=== PATIENT | female | born 1965 | race Caucasian/White ===

== ENCOUNTER → 2016-11-02 | Outpatient (CLI) | payer OTHER ==
--- NOTE | 2016-11-03 05:14 | REP ---
Clinical: Periumbilical/ventral pain. Technique: Real time meeks scale ultrasound examination using linear high frequency transducer. Findings: Directed ultrasound examination of the periumbilical region at the site of maximal tenderness during normal respiration and Valsalva demonstrates normal subcutaneous tissues and no evidence for hernia. Impression: Normal examination. No obvious hernia. Signed by Qasim Rai MD 11/03/2016 05:06 A
== END ==
LOC: M RAD 14:24
PROVIDERS: ATTEND Family Medicine
DX: K43.9 Ventral hernia without obstruction or gangrene (principal)

== ENCOUNTER → 2016-11-08 | Outpatient (REF) | payer OTHER ==
[2016-11-08 20:46] LABS: MEAN CORPUSCULAR HGB CONC 35.1 g/dl (32.0-36.5); MEAN CORPUSCULAR VOLUME 88.3 fl (80.0-96.0); PLATELET COUNT, AUTOMATED 267 k/mm3 (150-450); RED CELL DISTRIBUTION WIDTH 12.3 % (11.5-14.5); WHITE BLOOD COUNT 9.1 K/mm3 (4.0-10.0)
[2016-11-08 21:04] LABS: ALBUMIN 4.1 GM/DL (3.2-5.2); ALBUMIN/GLOBULIN RATIO 1.17 (1.00-1.93); ALKALINE PHOSPHATASE 76 U/L (45-117); ALT/SGPT 38 U/L (12-78); AMYLASE 56 U/L (25-115); ANION GAP 7 MEQ/L (8-16); AST/SGOT 25 U/L (15-37); BILIRUBIN,TOTAL 0.3 MG/DL (0.2-1.0); BLOOD UREA NITROGEN 16 MG/DL (7-18); CALCIUM LEVEL 9.8 MG/DL (8.5-10.1); CARBON DIOXIDE LEVEL 30 MEQ/L (21-32); CHLORIDE LEVEL 102 MEQ/L (98-107); CREATININE FOR GFR 0.89 MG/DL (0.55-1.02); GLOMERULAR FILTRATION RATE > 60.0 (>51); GLUCOSE, FASTING 89 MG/DL (70-105); POTASSIUM SERUM 4.8 MEQ/L (3.5-5.1); SODIUM LEVEL 139 MEQ/L (136-145); TOTAL PROTEIN 7.6 GM/DL (6.4-8.2)
[2016-11-08 21:10] LABS: BASOPHILS 2 % (0-4); EOSINOPHILS 5 % (0-5)
== END ==
LOC: M SFHCLERA 16:10
PROVIDERS: ATTEND Family Medicine
DX: R10.11 Right upper quadrant pain (principal)

== ENCOUNTER → 2016-11-09 | Outpatient (REF) | payer OTHER | LOC: M SFHCLERA 17:52 | PROVIDERS: ATTEND Family Medicine | DX: R10.11 Right upper quadrant pain (principal) ==

== ENCOUNTER → 2016-11-10 | Outpatient (CLI) | payer OTHER ==
--- NOTE | 2016-11-10 08:12 | REP ---
Clinical: Right upper quadrant abdominal pain. Technique: Cotter scale ultrasound using curved array transducer. Findings: The liver and pancreas are normal in contour, size, and echogenicity without focal hepatic or pancreatic lesions identified. The gallbladder is normal without gallstones, wall thickening or pericholecystic fluid. No biliary ductal dilatation is appreciated, and the common bile duct measures 4.0 mm diameter. The right kidney is normal in reniform shape without hydronephrosis and measures 10.3 x 6.1 x 4.1 cm. No ascites. Visualized portions of the abdominal aorta normal. Impression: Normal right upper quadrant and gallbladder abdominal ultrasound. Signed by Qasim Rai MD 11/10/2016 08:02 A
== END ==
LOC: M RAD 06:42
PROVIDERS: ATTEND Family Medicine
DX: R10.9 Unspecified abdominal pain (principal)

== ENCOUNTER → 2017-01-09 | Outpatient (REF) | payer OTHER | LOC: M SFHCLERA 08:32 | PROVIDERS: ATTEND Family Medicine | DX: Z13.1 Encounter for screening for diabetes mellitus (principal); R10.11 Right upper quadrant pain; Z13.220 Encounter for screening for lipoid disorders ==

== ENCOUNTER → 2017-01-10 | Outpatient (REF) | payer OTHER | LOC: M SFHCLERA 10:14 | PROVIDERS: ATTEND Family Medicine | DX: R10.11 Right upper quadrant pain (principal); Z13.1 Encounter for screening for diabetes mellitus; Z13.220 Encounter for screening for lipoid disorders ==

== ENCOUNTER → 2017-01-10 | Outpatient (REF) | payer OTHER | LOC: M LAB REF 13:09 | PROVIDERS: ATTEND Specialist | DX: Z12.4 Encounter for screening for malignant neoplasm of cervix (principal) ==

== ENCOUNTER → 2017-02-13 | Outpatient (REF) | payer OTHER ==
[~2017-02-13] MED LIST: CLAR5TAB7 PO; CRAN125T PO; ONETAB35 PO; PROAAER10 INH
== END ==
LOC: M LAB REF 17:15
PROVIDERS: ATTEND Specialist
DX: R87.612 Low grade squamous intraepithelial lesion on cytologic smear of cervix (LGSIL) (principal)

== ENCOUNTER 2017-03-06 11:09 | Outpatient (CLI) | payer OTHER ==
[~2017-03-06] VITALS: Ht 167.6 cm; Wt 64.0 kg
[~2017-03-06 11:09] MED LIST changes: +LIDOCAINE 2% INJ 100 MG/5 ML SDV (FOR ANES.) As Ordered ONE; +NS 1,000 ML IV ONE; +PROPOFOL 200 MG/20 ML VIAL As Ordered ONE
[2017-03-06] MEDS ORDERED: PROPOFOL 200 MG/20 ML VIAL As Ordered ONE (13:23)
--- NOTE | 2017-03-06 13:32 | ROOR ---
Patient Name: Zabrina Castellanos Procedure Date: 03/06/2017 1:11 PM Date of : 1965 Age: 52 Room: [facility] Gender: Female Note Status: Finalized Procedure: Colonoscopy Indications: Screening for colorectal malignant neoplasm Providers: Asif ROSE MD Referring MD: Tania ESCOBAR MD Requesting Provider: Medicines: Monitored Anesthesia Care Complications: No immediate complications. Procedure: Pre-Anesthesia Assessment: - The heart rate, respiratory rate, oxygen saturations, blood pressure, adequacy of pulmonary ventilation, and response to care were monitored throughout the procedure. The Colonoscope was introduced through the anus and advanced to the cecum, identified by appendiceal orifice and ileocecal valve. The colonoscopy was performed without difficulty. The patient tolerated the procedure well. The quality of the bowel preparation was good. Findings: The perianal and digital rectal examinations were normal. Internal hemorrhoids were found during retroflexion. The hemorrhoids were Grade II (internal hemorrhoids that prolapse but reduce spontaneously). A 4 mm polyp was found in the splenic flexure. The polyp was sessile. The polyp was removed with a cold snare. Resection and retrieval were complete. The exam was otherwise without abnormality on direct and retroflexion views. Impression: - Single moderate prolapsing Internal hemorrhoid. - One 4 mm polyp at the splenic flexure, removed with a cold snare. Resected and retrieved. - The colon examination was otherwise normal on direct and retroflexion views. Recommendation: - Telephone endoscopist for pathology results in 2 weeks. - If the pathology report reveals adenomatous tissue, then repeat the colonoscopy for surveillance in 5 years. - - If internal hemorrhoid is symptomatic (rectal bleeding, etc), consideration may be given to surgical repair. (The hemorrhoid is too large to ligate/band with my instruments today. I did not attempt repair today). Asif Rsoe MD Asif ROSE MD 03/06/2017 1:32:19 PM This report has been signed electronically. Number of Addenda: 0 Note Initiated On: 03/06/2017 1:11 PM Estimated Blood Loss: Estimated blood loss: none.
[2017-03-06 13:45] VITALS: BP 123/78
== END 2017-03-06 14:18 | disposition home or self-care (01) ==
LOC: M OPP 11:09
PROVIDERS: ATTEND Internal Medicine Gastroenterology
DX: Z12.11 Encounter for screening for malignant neoplasm of colon (principal); D12.3 Benign neoplasm of transverse colon; K64.1 Second degree hemorrhoids; J45.909 Unspecified asthma, uncomplicated; R06.2 Wheezing; Z91.010 Allergy to peanuts; Z88.3 Allergy status to other anti-infective agents; Z79.899 Other long term (current) drug therapy; Z80.3 Family history of malignant neoplasm of breast; Z80.42 Family history of malignant neoplasm of prostate; Z80.41 Family history of malignant neoplasm of ovary

== ENCOUNTER → 2017-06-18 | Outpatient (CLI) | payer OTHER ==
[~2017-06-18] MED LIST changes: -LIDOCAINE 2% INJ 100 MG/5 ML SDV (FOR ANES.) As Ordered ONE; -NS 1,000 ML IV ONE; -PROPOFOL 200 MG/20 ML VIAL As Ordered ONE
[2017-06-18 19:41] LABS: THYROID PEROXIDASE ANTIBODY < 28.0 U/ML (<60.0)
[2017-06-18 19:45] LABS: ALBUMIN 4.5 GM/DL (3.2-5.2); ALBUMIN/GLOBULIN RATIO 1.32 (1.00-1.93); ALKALINE PHOSPHATASE 67 U/L (45-117); ALT/SGPT 37 U/L (12-78); ANION GAP 8 MEQ/L (8-16); AST/SGOT 23 U/L (7-37); BILIRUBIN,TOTAL 0.3 MG/DL (0.2-1.0); BLOOD UREA NITROGEN 10 MG/DL (7-18); CALCIUM LEVEL 9.2 MG/DL (8.5-10.1); CARBON DIOXIDE LEVEL 28 MEQ/L (21-32); CHLORIDE LEVEL 104 MEQ/L (98-107); COMPLEMENT C3 109 MG/DL (90-180); CREATININE FOR GFR 0.81 MG/DL (0.55-1.02); GLOMERULAR FILTRATION RATE > 60.0 (>51); GLUCOSE, FASTING 92 MG/DL (70-105); POTASSIUM SERUM 4.3 MEQ/L (3.5-5.1); SODIUM LEVEL 140 MEQ/L (136-145); THYROXINE (T4) 11.8 UG/DL (4.5-12.0); TOTAL PROTEIN 7.9 GM/DL (6.4-8.2)
[2017-06-18 20:05] LABS: MEAN CORPUSCULAR HEMOGLOBIN 28.6 pg (27.0-33.0); MEAN CORPUSCULAR HGB CONC 32.6 g/dl (32.0-36.5); MEAN CORPUSCULAR VOLUME 87.7 fl (80.0-96.0); PLATELET COUNT, AUTOMATED 283 10^3/uL (150-450); RED CELL DISTRIBUTION WIDTH 12.3 % (11.5-14.5); WHITE BLOOD COUNT 8.1 10^3/uL (4.0-10.0)
[2017-06-18 22:15] LABS: ERYTHROCYTE SEDIMENTATION RATE 2 mm/hr (0-30)
== END ==
LOC: M SMT 13:49
PROVIDERS: ATTEND Nurse Practitioner Family
DX: L50.1 Idiopathic urticaria (principal)

== ENCOUNTER → 2018-03-11 | Outpatient (REF) | payer SELFPAY ==
[2018-03-13 14:18] LABS: HPV HYBRID CAPTURE II Negative (Negative)
== END ==
LOC: M LAB REF 17:25
DX: Z12.4 Encounter for screening for malignant neoplasm of cervix (principal)

== ENCOUNTER → 2018-09-06 | Outpatient (REF) | payer OTHER ==
[2018-09-06 14:10] LABS: APPEARANCE, URINE CLEAR (CLEAR); BACTERIA, URINE AUTO NEGATIVE (NEGATIVE); BILIRUBIN, URINE AUTO NEGATIVE (NEGATIVE); BLOOD, URINE BLOOD NEGATIVE (NEGATIVE); COLOR, URINE YELLOW (YELLOW); GLUCOSE, URINE (UA) AUTO NEGATIVE (NEGATIVE); KETONE, URINE AUTO NEGATIVE (NEGATIVE); LEUKOCYTE ESTERASE, URINE AUTO NEGATIVE (NEGATIVE); NITRITE, URINE AUTO NEGATIVE (NEGATIVE); PROTEIN, URINE AUTO NEGATIVE (NEGATIVE); RBC, URINE AUTO 0 /HPF (0-3); SPECIFIC GRAVITY URINE AUTO 1.016 (1.002-1.035); SQUAMOUS EPITHELIAL CELL UR AU 0 /HPF (0-6); UROBILINOGEN, URINE AUTO 0.2 mg/dL (0.0-2.0); WBC, URINE AUTO 0 /HPF (0-3)
== END ==
LOC: M LAB REF 13:23
PROVIDERS: ATTEND Physician Assistant
DX: N39.0 Urinary tract infection, site not specified (principal)

== ENCOUNTER → 2018-09-20 | Outpatient (CLI) | payer OTHER ==
--- NOTE | 2018-09-20 19:06 | REP ---
CT abdomen pelvis without IV or bowel contrast for gastric diverticulum: Comparison is 06/24/2012. The visualized lung coreas are unremarkable. There is no hiatal hernia. The stomach is incompletely distended reducing sensitivity of the study for gastric diverticulum. No gastric diverticulum is identified by CT. There is no perigastric mesenteric inflammation. The duodenal loop is unremarkable. The unenhanced hepatic parenchyma, gallbladder, pancreas and spleen are unremarkable. The adrenals are unremarkable. The unenhanced kidneys are unremarkable. Abdominal aorta is unremarkable except for occasional calcified atheroma. There is no retroperitoneal adenopathy or mass. The bowel and mesentery are unremarkable. There is no diverticulosis or diverticulitis. Pelvis: The appendix is unremarkable. Within the uterus. There is again a 5 mm calcification, unchanged from the prior study. On the sagittal images this could be within the fundal portion of the endometrial canal or possibly subendometrial within a degenerating submucosal fibroid. The adnexa are unremarkable. The bladder is unremarkable. Impression: Essentially negative CT study of the abdomen pelvis. No gastric diverticulum is identified by CT. However, the stomach is incompletely distended, decreasing sensitivity for gastric diverticulum. A small calcification is again noted in the uterus, as described, unchanged. Electronically Signed by Jomar Hooper MD 09/20/2018 06:57 P
== END ==
LOC: M RAD 17:23
PROVIDERS: ATTEND Specialist
DX: K31.4 Gastric diverticulum (principal); I70.0 Atherosclerosis of aorta

== ENCOUNTER → 2018-10-15 | Outpatient (REF) | payer OTHER | LOC: M LAB REF 15:17 | PROVIDERS: ATTEND Nurse Practitioner Family | DX: B35.3 Tinea pedis (principal) ==

== ENCOUNTER → 2018-12-06 | Outpatient (CLI) | payer OTHER ==
[2018-12-06 13:55] LABS: ALBUMIN 3.6 GM/DL (3.2-5.2); ALT/SGPT 112 U/L (12-78); BILIRUBIN,DIRECT < 0.1 MG/DL (0.0-0.2); BILIRUBIN,TOTAL 0.4 MG/DL (0.2-1.0); TOTAL PROTEIN 7.2 GM/DL (6.4-8.2)
== END ==
LOC: M SMT 09:29
PROVIDERS: ATTEND Nurse Practitioner Family
DX: Z51.81 Encounter for therapeutic drug level monitoring (principal); L60.8 Other nail disorders; B35.3 Tinea pedis

== ENCOUNTER → 2019-01-13 | Outpatient (REF) | payer OTHER ==
[2019-01-13 15:50] LABS: BASO # 0.1 10^3/uL (0.0-0.2); BASO % 0.9 % (0.0-1.0); EOS # 0.1 10^3/uL (0.0-0.50); HEMATOCRIT 44.1 % (36.0-47.0); HEMOGLOBIN 14.7 g/dl (12.0-15.5); LYMPH % 29.1 % (24.0-44.0); MEAN CORPUSCULAR HGB CONC 33.3 g/dl (32.0-36.5); MONO # 0.6 10^3/uL (0.0-0.8); NEUTROPHILS # 4.1 10^3/uL (1.8-7.7); NEUTROPHILS % 59.7 % (36.0-66.0); PLATELET COUNT, AUTOMATED 261 10^3/uL (150-450); RED BLOOD COUNT 5.25 10^6/uL (4.00-5.40); WHITE BLOOD COUNT 6.8 10^3/uL (4.0-10.0)
[2019-01-13 16:08] LABS: ALT/SGPT 47 U/L (12-78); BILIRUBIN,TOTAL 0.3 MG/DL (0.2-1.0); BLOOD UREA NITROGEN 18 MG/DL (7-18); CALCIUM LEVEL 8.5 MG/DL (8.5-10.1); CARBON DIOXIDE LEVEL 24 MEQ/L (21-32); CHLORIDE LEVEL 109 MEQ/L (98-107); CHOLESTEROL LEVEL 223 MG/DL (<200); CHOLESTEROL RISK RATIO 5.068 (<5); FREE T4 1.23 NG/DL (0.76-1.46); GLOMERULAR FILTRATION RATE > 60.0 (>51); GLUCOSE, FASTING 97 MG/DL (70-100); HDL CHOLESTEROL 44 MG/DL (>40); LDL CHOLESTEROL 163 MG/DL (<100); NON-HDL-C 179 MG/DL; POTASSIUM SERUM 4.2 MEQ/L (3.5-5.1); SODIUM LEVEL 140 MEQ/L (136-145); TOTAL PROTEIN 7.1 GM/DL (6.4-8.2); TRIGLYCERIDES LEVEL 79 MG/DL (<150)
== END ==
LOC: M SFHCSACK 09:39
PROVIDERS: ATTEND Physician Assistant
DX: Z13.21 Encounter for screening for nutritional disorder (principal); Z13.29 Encounter for screening for other suspected endocrine disorder; Z88.9 Allergy status to unspecified drugs, medicaments and biological substances; E78.2 Mixed hyperlipidemia

== ENCOUNTER → 2019-01-13 | Outpatient (REF) | payer OTHER ==
[2019-01-13 16:02] LABS: ALBUMIN 3.8 GM/DL (3.2-5.2); ALT/SGPT 45 U/L (12-78); BILIRUBIN,DIRECT < 0.1 MG/DL (0.0-0.2); BILIRUBIN,TOTAL 0.4 MG/DL (0.2-1.0); TOTAL PROTEIN 7.3 GM/DL (6.4-8.2)
== END ==
LOC: M LABNEURO 15:15
PROVIDERS: ATTEND Nurse Practitioner Family
DX: B35.3 Tinea pedis (principal); L60.8 Other nail disorders; Z51.81 Encounter for therapeutic drug level monitoring

== ENCOUNTER → 2019-07-18 | Outpatient (REF) | payer OTHER ==
[2019-07-18 14:43] LABS: BASO # 0.1 10^3/uL (0.0-0.2); BASO % 1.3 % (0.0-1.0); EOS # 0.2 10^3/uL (0.0-0.5); EOS % 3.2 % (0.0-3.0); HEMATOCRIT 48.8 % (36.0-47.0); HEMOGLOBIN 16.1 g/dl (12.0-15.5); LYMPH # 1.9 10^3/uL (1.5-5.0); LYMPH % 26.4 % (24.0-44.0); MEAN CORPUSCULAR HEMOGLOBIN 28.3 pg (27.0-33.0); MEAN CORPUSCULAR VOLUME 85.8 fl (80.0-96.0); MONO # 0.5 10^3/uL (0.0-0.8); MONO % 6.3 % (0.0-5.0); NEUTROPHILS # 4.5 10^3/uL (1.5-8.5); NEUTROPHILS % 62.5 % (36.0-66.0); PLATELET COUNT, AUTOMATED 247 10^3/uL (150-450); RED BLOOD COUNT 5.69 10^6/uL (4.00-5.40); WHITE BLOOD COUNT 7.1 10^3/uL (4.0-10.0)
[2019-07-18 15:11] LABS: ALBUMIN 3.9 GM/DL (3.2-5.2); ALT/SGPT 74 U/L (12-78); BILIRUBIN,TOTAL 0.4 MG/DL (0.2-1.0); BLOOD UREA NITROGEN 18 MG/DL (7-18); CARBON DIOXIDE LEVEL 24 MEQ/L (21-32); CHLORIDE LEVEL 108 MEQ/L (98-107); CHOLESTEROL LEVEL 297 MG/DL (<200); CHOLESTEROL RISK RATIO 5.603 (<5); CREATININE FOR GFR 0.82 MG/DL (0.55-1.30); GLOMERULAR FILTRATION RATE > 60.0 (>51); GLUCOSE, FASTING 90 MG/DL (70-100); HDL CHOLESTEROL 53 MG/DL (>40); LDL CHOLESTEROL 207 MG/DL (<100); NON-HDL-C 244 MG/DL; POTASSIUM SERUM 4.6 MEQ/L (3.5-5.1); SODIUM LEVEL 140 MEQ/L (136-145); TOTAL PROTEIN 7.6 GM/DL (6.4-8.2); TRIGLYCERIDES LEVEL 183 MG/DL (<150)
[2019-07-18 15:15] LABS: TOTAL 25(OH) VITAMIN D 57.8 NG/ML (30.0-100.0)
== END ==
LOC: M SFHCSACK 09:03
PROVIDERS: ATTEND Physician Assistant
DX: E55.9 Vitamin D deficiency, unspecified (principal); E78.2 Mixed hyperlipidemia

== ENCOUNTER → 2019-09-03 | Outpatient (CLI) | payer OTHER ==
--- NOTE | 2019-09-03 09:51 | REP ---
Clinical: Right upper quadrant pain. Technique: Real time meeks scale ultrasound examination using curved array transducer. Findings: Liver and pancreas are normal in contour, size, echogenicity without focal hepatic or pancreatic lesion identified. The gallbladder is normal and without gallstones, wall thickening, or pericholecystic fluid. No biliary ductal dilatation is appreciated and the common bile duct measures 4.1 mm diameter. Right kidney is normal in reniform shape without hydronephrosis and measures 10.2 x 3.8 x 4.7 cm. No ascites in the visualized right upper quadrant. Impression: Normal right upper quadrant/gallbladder ultrasound. Electronically Signed by Qasim Rai MD 09/03/2019 08:05 A
== END ==
LOC: M RAD 07:12
DX: R10.9 Unspecified abdominal pain (principal)

== ENCOUNTER → 2020-04-07 | Outpatient (CLI) | payer OTHER ==
[2020-04-07 11:55] LABS: BASO # 0.1 10^3/uL (0.0-0.2); BASO % 0.8 % (0.0-1.0); EOS # 0.3 10^3/uL (0.0-0.5); EOS % 3.5 % (0.0-3.0); HEMATOCRIT 46.3 % (36.0-47.0); HEMOGLOBIN 15.2 g/dl (12.0-15.5); LYMPH % 28.7 % (24.0-44.0); MEAN CORPUSCULAR HEMOGLOBIN 28.4 pg (27.0-33.0); MEAN CORPUSCULAR HGB CONC 32.8 g/dl (32.0-36.5); MEAN CORPUSCULAR VOLUME 86.4 fl (80.0-96.0); MONO # 0.5 10^3/uL (0.0-0.8); MONO % 6.9 % (0.0-5.0); NEUTROPHILS # 4.3 10^3/uL (1.5-8.5); NEUTROPHILS % 59.8 % (36.0-66.0); PLATELET COUNT, AUTOMATED 260 10^3/uL (150-450); RED BLOOD COUNT 5.36 10^6/uL (4.00-5.40); WHITE BLOOD COUNT 7.1 10^3/uL (4.0-10.0)
[2020-04-07 12:14] LABS: BLOOD UREA NITROGEN 17 MG/DL (7-18); CALCIUM LEVEL 8.7 MG/DL (8.5-10.1); CARBON DIOXIDE LEVEL 28 MEQ/L (21-32); CHLORIDE LEVEL 108 MEQ/L (98-107); CHOLESTEROL LEVEL 254 MG/DL (<200); GLOMERULAR FILTRATION RATE > 60.0 (>51); GLUCOSE, FASTING 96 MG/DL (70-100); HDL CHOLESTEROL 51 MG/DL (>40); LDL CHOLESTEROL 173 MG/DL (<100); NON-HDL-C 203 MG/DL; POTASSIUM SERUM 4.5 MEQ/L (3.5-5.1); SODIUM LEVEL 139 MEQ/L (136-145); TRIGLYCERIDES LEVEL 148 MG/DL (<150)
== END ==
LOC: M PLALAB 07:53
PROVIDERS: ATTEND Physician Assistant
DX: E78.2 Mixed hyperlipidemia (principal); E55.9 Vitamin D deficiency, unspecified

== ENCOUNTER → 2020-10-06 | Outpatient (CLI) | payer OTHER ==
--- NOTE | 2020-10-06 10:04 | REP ---
INDICATION: OTH DISEASE OF GALLBLADDER. COMPARISON: None TECHNIQUE/RADIOTRACER AND DOSE: FOLLOWING THE INTRAVENOUS ADMINISTRATION OF 6.6 MCI TECHNETIUM 99 M-MEBROFENIN, MULTIPLE IMAGES OF THE RIGHT UPPER QUADRANT ARE PERFORMED FOR 60 MINUTES. NEXT 8 OZ OF ENSURE ENLIVE IS INGESTED AND FURTHER IMAGING IS PERFORMED FOR 65 MINUTES. FINDINGS: THE GALLBLADDER IS VISUALIZED AT 10 MINUTES POST INJECTION. There is no biliary to bowel transit by the 1 hour vianney, which may represent a hypertonic sphincter of Oddi.. Biliary to bowel transit is seen immediately after ingestion of Ensure. THERE IS NO SCINTIGRAPHIC EVIDENCE OF CHOLECYSTITIS. GALLBLADDER EJECTION FRACTION IS CALCULATED TO BE 48% WHICH IS NORMAL. IMPRESSION: NORMAL GALLBLADDER EJECTION FRACTION.Somewhat delayed biliary to bowel transit may represent a hypertonic sphincter of Oddi. <Electronically signed by Jomar Cotter > 10/06/20 1000
== END ==
LOC: M RAD 07:33
PROVIDERS: ATTEND Internal Medicine Gastroenterology
DX: K82.8 Other specified diseases of gallbladder (principal)
CPT/HCPCS: 78227; A9537

== ENCOUNTER → 2020-10-10 | Outpatient (CLI) | payer OTHER | LOC: M LABSMTC 09:26 | PROVIDERS: ATTEND Anesthesiology | DX: Z01.812 Encounter for preprocedural laboratory examination (principal) ==

== ENCOUNTER 2020-10-15 13:29 | Day surgery (SDC) | payer OTHER ==
[~2020-10-15] VITALS: Ht 167.6 cm; Wt 65.7 kg
[~2020-10-15 13:29] MED LIST changes: +LIDOCAINE 2% 100MG/5ML SDV (FOR ANES.) As Ordered ONE; +NS 1,000 ML IV ONE; +propofoL 200 MG/20 ML VIAL As Ordered ONE
--- NOTE | 2020-10-15 15:39 | ROOR ---
Patient Name: Zabrina Chi Procedure Date: 10/15/2020 3:28 PM Date of : 1965 Age: 55 Room: [facility] Gender: Female Note Status: Finalized Procedure: Upper GI endoscopy Indications: Abdominal pain in the right upper quadrant, Nausea Providers: Asif SAAVEDRA MD Referring MD: Patricia Michele Requestpaola Provider: Medicines: Monitored Anesthesia Care Complications: No immediate complications. Procedure: Pre-Anesthesia Assessment: - The heart rate, respiratory rate, oxygen saturations, blood pressure, adequacy of pulmonary ventilation, and response to care were monitored throughout the procedure. The Endoscope was introduced through the mouth, and advanced to the second part of duodenum. The upper GI endoscopy was accomplished without difficulty. The patient tolerated the procedure well. Findings: The esophagus was normal. The stomach was normal. The examined duodenum was normal. Impression: - Normal esophagus. - Normal stomach. - Normal examined duodenum. - No specimens collected. Recommendation: - Observe patient's clinical course. - Follow an antireflux regimen. Procedure Code(s): --- Professional --- 05154, Esophagogastroduodenoscopy, flexible, transoral; diagnostic, including collection of specimen(s) by brushing or washing, when performed (separate procedure) Diagnosis Code(s): --- Professional --- R11.0, Nausea R10.11, Right upper quadrant pain CPT copyright 2019 [employer]. All rights reserved. The codes documented in this report are preliminary and upon industrial production manager review may be revised to meet current compliance requirements. Asif Saavedra MD Asif SAAVEDRA MD 10/15/2020 3:39:38 PM Electronically signed by Asif SAAVEDRA MD Number of Addenda: 0 Note Initiated On: 10/15/2020 3:28 PM Estimated Blood Loss: Estimated blood loss: none.
--- NOTE | 2020-10-15 16:09 | ROOR ---
Patient Name: Zabrina Chi Procedure Date: 10/15/2020 3:29 PM Date of : 1965 Age: 55 Room: [facility] Gender: Female Note Status: Finalized Procedure: Colonoscopy Indications: Generalized abdominal pain, Irritable bowel syndrome with constipation Providers: Asif SAAVEDRA MD Referring MD: Patricia Michele Requesting Provider: Medicines: Monitored Anesthesia Care Complications: No immediate complications. Procedure: Pre-Anesthesia Assessment: - The heart rate, respiratory rate, oxygen saturations, blood pressure, adequacy of pulmonary ventilation, and response to care were monitored throughout the procedure. The Colonoscope was introduced through the anus and advanced to the terminal ileum, with identification of the appendiceal orifice and IC valve. The colonoscopy was somewhat difficult due to unsatisfactory bowel prep. Successful completion of the procedure was aided by lavage. The patient tolerated the procedure well. The quality of the bowel preparation was fair. Findings: The perianal and digital rectal examinations were normal. A localized area of mildly erythematous mucosa was found in the distal rectum. This was biopsied with a cold forceps for histology. The colon (entire examined portion) was redundant. The exam was otherwise normal throughout the examined colon. The terminal ileum appeared normal. Internal hemorrhoids were found during retroflexion. The hemorrhoids were moderate. Mild rectal prolapse was present. Impression: - Preparation of the colon was fair. - Redundant colon. - Erythematous mucosa in the distal rectum likely related to small rectal mucosal prolapse. Biopsied. - Internal hemorrhoids. - The colon was otherwise normal. - The examined portion of the ileum was normal. Recommendation: - I suspect your symptoms are related to Irritable bowel (IBS-C). Rec combination of fiber supplement and one dose of miralax daily dosing. - Miralax 1 capful (17 grams) in 8 ounces of water PO daily. - Use fiber, for example Citrucel, Fibercon, Konsyl or Metamucil. - Telephone endoscopist for pathology results in 2 weeks. Procedure Code(s): --- Professional --- 74680, Colonoscopy, flexible; with biopsy, single or multiple Diagnosis Code(s): --- Professional --- K64.8, Other hemorrhoids K62.89, Other specified diseases of anus and rectum K62.3, Rectal prolapse R10.84, Generalized abdominal pain K58.1, Irritable bowel syndrome with constipation Q43.8, Other specified congenital malformations of intestine CPT copyright 2019 [employer]. All rights reserved. The codes documented in this report are preliminary and upon safety physician review may be revised to meet current compliance requirements. Asif Saavedra MD Asif SAAVEDRA MD 10/15/2020 4:08:47 PM Electronically signed by Asif SAAVEDRA MD Number of Addenda: 0 Note Initiated On: 10/15/2020 3:29 PM Estimated Blood Loss: Estimated blood loss: none.
[2020-10-15 17:00] VITALS: BP 114/66
== END 2020-10-15 17:10 | disposition home or self-care (01) ==
LOC: M OPP 13:29
PROVIDERS: ATTEND Internal Medicine Gastroenterology
DX: Q43.8 Other specified congenital malformations of intestine (principal); K62.3 Rectal prolapse; K62.89 Other specified diseases of anus and rectum; K64.8 Other hemorrhoids; R10.84 Generalized abdominal pain; K58.1 Irritable bowel syndrome with constipation; R11.0 Nausea; Z88.5 Allergy status to narcotic agent; Z91.010 Allergy to peanuts; Z91.018 Allergy to other foods

== ENCOUNTER 2020-12-22 14:12 | Emergency (ER) | payer OTHER ==
[~2020-12-22] VITALS: Ht 167.6 cm; Wt 65.9 kg
[~2020-12-22 14:12] MED LIST changes: -LIDOCAINE 2% 100MG/5ML SDV (FOR ANES.) As Ordered ONE; -NS 1,000 ML IV ONE; -propofoL 200 MG/20 ML VIAL As Ordered ONE
[2020-12-22 14:13] VITALS: BP 140/79
[2020-12-22 14:51] LABS: BASO # 0.1 10^3/uL (0.0-0.2); BASO % 0.8 % (0.0-1.0); EOS # 0.2 10^3/uL (0.0-0.5); EOS % 2.6 % (0.0-3.0); HEMATOCRIT 46.4 % (36.0-47.0); HEMOGLOBIN 15.3 g/dl (12.0-15.5); LYMPH # 2.2 10^3/uL (1.5-5.0); LYMPH % 24.2 % (24.0-44.0); MEAN CORPUSCULAR HEMOGLOBIN 27.7 pg (27.0-33.0); MEAN CORPUSCULAR VOLUME 84.1 fl (80.0-96.0); MONO # 0.6 10^3/uL (0.0-0.8); MONO % 6.7 % (2.0-8.0); NEUTROPHILS % 65.3 % (36.0-66.0); PLATELET COUNT, AUTOMATED 267 10^3/uL (150-450); RED BLOOD COUNT 5.52 10^6/uL (4.00-5.40); WHITE BLOOD COUNT 9.2 10^3/uL (4.0-10.0)
[2020-12-22 15:16] LABS: BLOOD UREA NITROGEN 16 MG/DL (7-18); CALCIUM LEVEL 9.5 MG/DL (8.5-10.1); CARBON DIOXIDE LEVEL 27 MEQ/L (21-32); CHLORIDE LEVEL 104 MEQ/L (98-107); CREATININE FOR GFR 0.66 MG/DL (0.55-1.30); GLOMERULAR FILTRATION RATE > 60.0 (>51); GLUCOSE, FASTING 85 MG/DL (70-100); POTASSIUM SERUM 4.4 MEQ/L (3.5-5.1); SODIUM LEVEL 139 MEQ/L (136-145)
[2020-12-22 15:21] LABS: ERYTHROCYTE SEDIMENTATION RATE 5 mm/hr (0-30)
[2020-12-22 17:42] LABS: VITAMIN B12 LEVEL 678 PG/ML (247-911)
--- NOTE | 2020-12-22 18:02 | REPVR ---
PROCEDURE INFORMATION: Exam: CT Head Without Contrast Exam date and time: 12/22/2020 5:19 PM Age: 55 years old Clinical indication: Weakness, extremity; Left; Additional info: Numbness left leg, left hand TECHNIQUE: Imaging protocol: Computed tomography of the head without contrast. Radiation optimization: All CT scans at this facility use at least one of these dose optimization techniques: automated exposure control; mA and/or kV adjustment per patient size (includes targeted exams where dose is matched to clinical indication); or iterative reconstruction. COMPARISON: No relevant prior studies available. FINDINGS: Brain: Unremarkable. No hemorrhage. No significant white matter disease. No edema. Cerebral ventricles: No ventriculomegaly. Paranasal sinuses: Visualized sinuses are unremarkable. No fluid levels. Mastoid air cells: Visualized mastoid air cells are well aerated. Bones/joints: Unremarkable. No acute fracture. Soft tissues: Unremarkable. IMPRESSION: No acute abnormality. Electronically signed by: Oliver Dominguez On 12/22/2020 18:02:12 PM
[2020-12-22] MEDS ORDERED: PRED20TA PO (18:19)
== END 2020-12-22 18:29 | disposition home or self-care (01) ==
LOC: M ED 14:12
DX: R20.2 Paresthesia of skin (principal); E78.00 Pure hypercholesterolemia, unspecified; J45.909 Unspecified asthma, uncomplicated; Z79.899 Other long term (current) drug therapy; Z91.010 Allergy to peanuts; Z88.5 Allergy status to narcotic agent

== ENCOUNTER → 2021-01-25 | Outpatient (CLI) | payer OTHER ==
[~2021-01-25] MED LIST changes: +ISOVUE-370 76% 100ML VIAL As Ordered ONE; +PRED20TA PO
== END ==
LOC: M RAD 15:37
PROVIDERS: ATTEND Physician Assistant
DX: M76.60 Achilles tendinitis, unspecified leg (principal)

== ENCOUNTER → 2021-03-07 | Outpatient (REF) | payer OTHER ==
[~2021-03-07] MED LIST changes: -ISOVUE-370 76% 100ML VIAL As Ordered ONE
== END ==
LOC: M SFHCWAGY 19:24
PROVIDERS: ATTEND Specialist
DX: Z01.419 Encounter for gynecological examination (general) (routine) without abnormal findings (principal)

== ENCOUNTER → 2021-03-19 | Outpatient (CLI) | payer OTHER ==
--- NOTE | 2021-03-20 11:11 | REPVR ---
PROCEDURE INFORMATION: Exam: MR Cervical Spine Without Contrast Exam date and time: 03/19/2021 4:25 PM Age: 56 years old Clinical indication: Disc like symptoms TECHNIQUE: Imaging protocol: Multiplanar magnetic resonance images of the cervical spine without contrast. COMPARISON: CT Spine,cervical w/o contrast 08/31/2015 12:23 AM FINDINGS: Vertebrae: Unremarkable. Spinal cord: Normal signal. Moderate deformity of the cervical cord at C5/6. C2-C3: No significant disc disease. No significant spinal stenosis. C3-C4: No significant disc disease. No significant spinal stenosis. C4-C5: There is degenerative disc disease including disc space narrowing and dessication. There is a moderate disc/osteophyte complex, partial toward the left, that flattens the ventral thecal sac and compromises the left neural foramen. There is a small left paracentral disc protrusion. There is effacement of the ventral subarachnoid space and indentation of the ventral cervical cord. There is bilateral uncovertebral joint arthropathy, worse on the left. There is moderate left-sided neuroforaminal narrowing. There is mild spinal canal stenosis. C5-C6: There is disc space narrowing and desiccation. There are moderate degenerative end plate changes at this level. There is a moderate disc/osteophyte complex, partial toward the right, that flattens the ventral thecal sac and compromises the right neural foramen. There is a moderate right paracentral disc protrusion. There is effacement of the ventral subarachnoid space and indentation of the ventral cervical cord. There is bilateral uncovertebral joint arthropathy, worse on the right. There is moderate bilateral neural foraminal narrowing, right worse than left. There is moderate spinal canal stenosis. C6-C7: There is disc desiccation. There is a moderate disc/osteophyte complex, partial toward the right, that flattens the ventral thecal sac and compromises the right neural foramen. There is a small right subarticular disc protrusion. There is bilateral uncovertebral joint arthropathy, worse on the right. There is mild/moderate bilateral neuroforaminal narrowing, right worse than left. There is mild spinal canal stenosis. C7-T1: No significant disc disease. No significant spinal stenosis. Soft tissues: Unremarkable. IMPRESSION: Moderate multilevel degenerative changes causing varying degrees of spinal canal and neuroforaminal narrowing. Spinal canal stenosis is most severe at C5/6. Please see details above. Electronically signed by: Kevin Garibay On 03/20/2021 11:11:05 AM
--- NOTE | 2021-03-20 11:16 | REPVR ---
PROCEDURE INFORMATION: Exam: MR Lumbar Spine Without Contrast Exam date and time: 03/19/2021 4:56 PM Age: 56 years old Clinical indication: Disc like symptoms TECHNIQUE: Imaging protocol: Multiplanar magnetic resonance images of the lumbar spine without intravenous contrast. COMPARISON: CT ABD PELVIS W/O CONTRAST 09/20/2018 5:36 PM FINDINGS: Vertebrae: Unremarkable. Spinal cord: Normal signal. No cord compression. L1-L2: There is degenerative disc disease including disc space narrowing and dessication. There is a moderate disc bulge with a moderate superimposed central/right paracentral disc herniation. There is mild spinal canal stenosis. L2-L3: There is facet arthropathy and ligamentum flavum hypertrophy. L3-L4: There is disc desiccation. There is facet arthropathy and ligamentum flavum hypertrophy. L4-L5: There is disc space narrowing and desiccation. There are moderate degenerative end plate changes at this level. There is a moderate disc bulge with a small superimposed central disc herniation. Disc bulging extends into both neural foramen causing moderate bilateral neural foraminal narrowing, right worse than left. There is facet arthropathy and ligamentum flavum hypertrophy. L5-S1: There is disc space narrowing and desiccation. There are moderate degenerative end plate changes at this level. There is a moderate disc/osteophyte complex that flattens the ventral thecal sac. There is mild bilateral neuroforaminal narrowing. There is facet arthropathy and ligamentum flavum hypertrophy. Soft tissues: Unremarkable. IMPRESSION: Multilevel degenerative changes causing varying degrees of spinal canal and neuroforaminal narrowing. Please see details above. Electronically signed by: Kevin Garibay On 03/20/2021 11:16:38 AM
== END ==
LOC: M RAD 15:20
PROVIDERS: ATTEND Chiropractor
DX: M54.12 Radiculopathy, cervical region (principal); M99.03 Segmental and somatic dysfunction of lumbar region; M54.13 Radiculopathy, cervicothoracic region; M99.01 Segmental and somatic dysfunction of cervical region

== ENCOUNTER → 2021-04-01 | Outpatient (CLI) | payer OTHER | LOC: M WHC 15:18 | PROVIDERS: ATTEND Specialist | DX: Z12.31 Encounter for screening mammogram for malignant neoplasm of breast (principal) ==

== ENCOUNTER → 2022-07-13 | Outpatient (CLI) | payer OTHER | LOC: M WHC 15:50 | PROVIDERS: ATTEND Student in an Organized Health Care Education/Training Program | DX: Z12.31 Encounter for screening mammogram for malignant neoplasm of breast (principal) ==

== ENCOUNTER → 2022-08-03 | Outpatient (CLI) | payer OTHER ==
[2022-08-03 11:32] LABS: BASO # 0.1 10^3/uL (0.0-0.2); BASO % 0.9 % (0.0-1.0); EOS # 0.4 10^3/uL (0.0-0.5); EOS % 4.9 % (0.0-3.0); HEMATOCRIT 48.3 % (36.0-47.0); HEMOGLOBIN 15.7 g/dl (12.0-15.5); MEAN CORPUSCULAR HGB CONC 32.5 g/dl (32.0-36.5); MEAN CORPUSCULAR VOLUME 86.1 fl (80.0-96.0); MONO # 0.6 10^3/uL (0.0-0.8); MONO % 7.7 % (2.0-8.0); NEUTROPHILS # 4.6 10^3/uL (1.5-8.5); NEUTROPHILS % 60.2 % (36.0-66.0); PLATELET COUNT, AUTOMATED 297 10^3/uL (150-450); RED BLOOD COUNT 5.61 10^6/uL (4.00-5.40); WHITE BLOOD COUNT 7.7 10^3/uL (4.0-10.0)
[2022-08-03 11:55] LABS: ALBUMIN 4.2 G/DL (3.2-5.2); ALKALINE PHOSPHATASE 64 U/L (46-116); ALT/SGPT 32 U/L (7.0-40); AST/SGOT 20 U/L (<34); BILIRUBIN,TOTAL 0.6 MG/DL (0.3-1.2); BLOOD UREA NITROGEN 18 MG/DL (9-23); CALCIUM LEVEL 9.5 MG/DL (8.5-10.1); CARBON DIOXIDE LEVEL 27 MMOL/L (20-31); CHLORIDE LEVEL 106 MMOL/L (98-107); CHOLESTEROL LEVEL 263 MG/DL (<200); CHOLESTEROL RISK RATIO 5.63 (<5); GLOMERULAR FILTRATION RATE > 60.0 (>51); GLUCOSE, FASTING 90 MG/DL (60-100); HDL CHOLESTEROL 46.7 MG/DL (>40); LDL CHOLESTEROL 199.5 MG/DL (<100); NON-HDL-C 216 MG/DL; POTASSIUM SERUM 5.3 MMOL/L (3.5-5.1); SODIUM LEVEL 140 MMOL/L (136-145); TOTAL PROTEIN 7.2 G/DL (5.7-8.2); TRIGLYCERIDES LEVEL 84 MG/DL (<150)
== END ==
LOC: M PLALAB 07:31
PROVIDERS: ATTEND Student in an Organized Health Care Education/Training Program
DX: Z00.00 Encounter for general adult medical examination without abnormal findings (principal)

== ENCOUNTER → 2022-10-12 | Outpatient (REF) | payer OTHER | LOC: M SFHCWAGY 10:28 | PROVIDERS: ATTEND Specialist | DX: Z01.419 Encounter for gynecological examination (general) (routine) without abnormal findings (principal); R87.610 Atypical squamous cells of undetermined significance on cytologic smear of cervix (ASC-US) | CPT/HCPCS: 87624; G0123 ==

== ENCOUNTER → 2023-04-25 | Outpatient (CLI) | payer OTHER ==
[2023-04-25 10:30] LABS: BASO # 0.1 10^3/uL (0.0-0.2); BASO % 0.9 % (0.0-1.0); EOS # 0.2 10^3/uL (0.0-0.5); EOS % 3.2 % (0.0-3.0); HEMATOCRIT 44.5 % (36.0-47.0); HEMOGLOBIN 14.6 g/dl (12.0-15.5); LYMPH # 1.9 10^3/uL (1.5-5.0); LYMPH % 29.2 % (24.0-44.0); MEAN CORPUSCULAR HEMOGLOBIN 28.5 pg (27.0-33.0); MEAN CORPUSCULAR HGB CONC 32.8 g/dl (32.0-36.5); MEAN CORPUSCULAR VOLUME 86.9 fl (80.0-96.0); MONO # 0.5 10^3/uL (0.0-0.8); MONO % 7.7 % (2.0-8.0); NEUTROPHILS # 3.8 10^3/uL (1.5-8.5); NEUTROPHILS % 58.8 % (36.0-66.0); PLATELET COUNT, AUTOMATED 271 10^3/uL (150-450); RED BLOOD COUNT 5.12 10^6/uL (4.00-5.40); WHITE BLOOD COUNT 6.5 10^3/uL (4.0-10.0)
[2023-04-25 10:58] LABS: BLOOD UREA NITROGEN 18 MG/DL (9-23); CALCIUM LEVEL 8.9 MG/DL (8.5-10.1); CARBON DIOXIDE LEVEL 29 MMOL/L (20-31); CHLORIDE LEVEL 106 MMOL/L (98-107); CHOLESTEROL LEVEL 229 MG/DL (<200); CHOLESTEROL RISK RATIO 4.79 (<5); CREATININE FOR GFR 0.77 MG/DL (0.55-1.30); GLOMERULAR FILTRATION RATE > 60.0 (>51); GLUCOSE, FASTING 85 MG/DL (60-100); HDL CHOLESTEROL 47.8 MG/DL (>40); LDL CHOLESTEROL 164.2 MG/DL (<100); NON-HDL-C 181.2 MG/DL; POTASSIUM SERUM 4.8 MMOL/L (3.5-5.1); SODIUM LEVEL 141 MMOL/L (136-145); TRIGLYCERIDES LEVEL 85 MG/DL (<150)
== END ==
LOC: M WUC 08:08
PROVIDERS: ATTEND Student in an Organized Health Care Education/Training Program
DX: E78.5 Hyperlipidemia, unspecified (principal); D75.1 Secondary polycythemia; E87.5 Hyperkalemia

== ENCOUNTER → 2024-06-25 | Outpatient (REF) | payer OTHER ==
[2024-06-25 18:34] LABS: BASO # 0.1 10^3/uL (0.0-0.2); BASO % 0.9 % (0.0-1.0); EOS # 0.2 10^3/uL (0.0-0.5); EOS % 2.4 % (0.0-3.0); HEMATOCRIT 45.2 % (36.0-47.0); HEMOGLOBIN 14.8 g/dl (12.0-15.5); LYMPH # 1.5 10^3/uL (1.5-5.0); LYMPH % 22.1 % (24.0-44.0); MEAN CORPUSCULAR HEMOGLOBIN 28.6 pg (27.0-33.0); MEAN CORPUSCULAR HGB CONC 32.7 g/dl (32.0-36.5); MEAN CORPUSCULAR VOLUME 87.4 fl (80.0-96.0); MONO # 0.6 10^3/uL (0.0-0.8); MONO % 8.8 % (2.0-8.0); NEUTROPHILS # 4.5 10^3/uL (1.5-8.5); NEUTROPHILS % 65.7 % (36.0-66.0); PLATELET COUNT, AUTOMATED 270 10^3/uL (150-450); RED BLOOD COUNT 5.17 10^6/uL (4.00-5.40); WHITE BLOOD COUNT 6.8 10^3/uL (4.0-10.0)
[2024-06-25 18:45] LABS: THYROID STIMULATING HORMONE 1.344 uIU/ML (0.55-4.78)
[2024-06-25 18:47] LABS: TOTAL 25(OH) VITAMIN D 39.8 NG/ML (20.0-100.0)
[2024-06-25 18:48] LABS: ALBUMIN 3.7 G/DL (3.2-5.2); ALKALINE PHOSPHATASE 61 U/L (35-104); ALT/SGPT 32 U/L (7.0-40); AST/SGOT 18 U/L (<34); BILIRUBIN,TOTAL 0.5 MG/DL (0.3-1.2); BLOOD UREA NITROGEN 15 MG/DL (9-23); CALCIUM LEVEL 9.6 MG/DL (8.5-10.1); CARBON DIOXIDE LEVEL 27 MMOL/L (20-31); CHLORIDE LEVEL 109 MMOL/L (98-107); CHOLESTEROL LEVEL 242 MG/DL (<200); CHOLESTEROL RISK RATIO 4.84 (<5); CREATININE FOR GFR 0.73 MG/DL (0.55-1.30); GLOMERULAR FILTRATION RATE > 60.0 (>51); GLUCOSE, FASTING 82 MG/DL (60-100); LDL CHOLESTEROL 175.4 MG/DL (<100); POTASSIUM SERUM 5.3 MMOL/L (3.5-5.1); SODIUM LEVEL 143 MMOL/L (136-145); TOTAL PROTEIN 6.8 G/DL (5.7-8.2); TRIGLYCERIDES LEVEL 83 MG/DL (<150)
== END ==
LOC: M SFHCLERA 07:33
DX: E78.2 Mixed hyperlipidemia (principal)

== ENCOUNTER → 2024-07-11 | Outpatient (CLI) | payer OTHER | LOC: M WHC 12:51 | DX: Z12.31 Encounter for screening mammogram for malignant neoplasm of breast (principal) ==

== ENCOUNTER → 2024-08-07 | Outpatient (CLI) | payer OTHER | LOC: M WHC 08:53 | DX: Z12.31 Encounter for screening mammogram for malignant neoplasm of breast (principal) ==

== ENCOUNTER 2024-10-03 08:39 | Day surgery (SDC) | payer OTHER ==
[~2024-10-03] VITALS: Ht 167.6 cm; Wt 61.1 kg
[~2024-10-03 08:39] MED LIST changes: +ESTR0.059 TD; +VITA-243 PO; +ZINC50TA26 PO; +[UNRECOGNIZED DRUG - REMARK]
[2024-10-03] MEDS ORDERED: LIDOCAINE 2% 100MG/5ML SDV (FOR ANES.) As Ordered ONE (10:32)
[2024-10-03] MEDS ORDERED: propofoL 200 MG/20 ML VIAL As Ordered ONE (10:32)
[2024-10-03 11:16] VITALS: TEMP 97
[2024-10-03 11:30] VITALS: BP 122/67; O2SAT 97
== END 2024-10-03 11:40 | disposition home or self-care (01) ==
LOC: M OPP 08:39
PROVIDERS: ATTEND Surgery
DX: Z12.11 Encounter for screening for malignant neoplasm of colon (principal); K57.30 Diverticulosis of large intestine without perforation or abscess without bleeding; Z88.5 Allergy status to narcotic agent; Z91.010 Allergy to peanuts; Z91.018 Allergy to other foods; Z91.048 Other nonmedicinal substance allergy status; Z79.899 Other long term (current) drug therapy; J45.909 Unspecified asthma, uncomplicated

== ENCOUNTER → 2024-12-01 | Outpatient (REF) | payer OTHER | LOC: M SFHCWAGY 12:58 | PROVIDERS: ATTEND Specialist | DX: Z01.419 Encounter for gynecological examination (general) (routine) without abnormal findings (principal) ==